=== PATIENT | male | born 1985 | race Two or more races ===

== ENCOUNTER 2018-06-23 13:16 | Inpatient (IN) | payer OTHER ==
[2018-06-23 16:48] VITALS: BMI 25.1
--- NOTE | 2018-06-23 18:31 | HP ---
CIWA Score - CIWA Score Nausea/Vomitin-No Nausea/No Vomiting Muscle Tremors: 1-None Visible, but Nabb Anxiety: 3 Agitation: 2 Paroxysmal Sweats: 1-Minimal Palms Moist Orientation: 0-Oriented Tacttile Disturbances: 0-None Auditory Disturbances: 0-None Visual Disturbances: 0-None Headache: 3-Moderate (6/10 pain) CIWA-Ar Total Score: 10 Admission ROS BHS - HPI Chief Complaint: alcohol withdrawal symptoms Allergies/Adverse Reactions: Allergies Allergy/AdvReac Type Severity Reaction Status Date / Time shellfish derived Allergy Hives Verified 06/23/18 18:29 History of Present Illness: 32 yo male with hx of alcohol dependence is here seeking detox. patient reports he was sent by his patient program [facility] after d/t relapse. Last detox 2002 unable to recall the name of the facility. Denies any medical or psychiatric problems. Denies suicidal / homicidal ideation. Denies hx of seizures or blackouts. Longest period of sobriety two years. Reports currently under parole, release from care home 05/31/18. Exam Limitations: No Limitations - Ebola screening Have you traveled outside of the country in the last 21 days: No Have you had contact with anyone from an Ebola affected area: No Have you been sick,other than usual withdrawal symptoms: No - Review of Systems Constitutional: Chills, Changes in sleep, Other (tire / fatigue) EENT: reports: No Symptoms Reported Respiratory: reports: No Symptoms reported Cardiac: reports: No Symptoms Reported GI: reports: Nausea, Other : reports: No Symptoms Reported Musculoskeletal: reports: No Symptoms Reported Integumentary: reports: No Symptoms Reported Neuro: reports: Headache Endocrine: reports: Increased Thirst Hematology: reports: No Symptoms Reported Psychiatric: reports: Orientated x3, Anxious, Depressed Other Systems: Reviewed and Negative Patient History - Patient Medical History Hx Anemia: No Hx Asthma: No Hx Chronic Obstructive Pulmonary Disease (COPD): No Hx Cancer: No Hx Cardiac Disorders: No Hx Congestive Heart Failure: No Hx Hypertension: No Hx Hypercholesterolemia: No Hx Pacemaker: No HX Cerebrovascular Accident: No Hx Seizures: No Hx Dementia: No Hx Diabetes: No Hx Gastrointestinal Disorders: No Hx Liver Disease: No Hx Genitourinary Disorders: No Hx Sexually Transmitted Disorders: Yes (chamydia ) Hx Renal Disease (ESRD): No Hx Thyroid Disease: No Hx Human Immunodeficiency Virus (HIV): No (Last tested one year ago ) Hx Hepatitis C: No Hx Depression: No Hx Suicide Attempt: No Hx Bipolar Disorder: No (reports dx in the past ) Hx Schizophrenia: No - Patient Surgical History Past Surgical History: No - PPD History Previous Implant?: No Documented Results: Negative w/o proof PPD to be Administered?: Yes - Smoking Cessation Smoking history: Current every day smoker Have you smoked in the past 12 months: Yes Aproximately how many cigarettes per day: 10 Hx Chewing Tobacco Use: No Initiated information on smoking cessation: Yes 'Breaking Loose' booklet given: 06/23/18 - Substance & Tx. History Hx Alcohol Use: Yes Hx Substance Use: Yes Substance Use Type: Alcohol Hx Substance Use Treatment: Yes (Last detox 2002 unable to recall the name of the facility.) - Substances Abused Alcohol Route: Oral Frequency: 1-2 times per week Amount used: 1 pint liquor + 6 shots of liquor Age of first use: 15 Date of Last Use: 06/23/18 Family Disease History - Family Disease History Family Disease History: [place]: Sister (alive ) Admission Physical Exam S - Vital Signs Vital Signs: Vital Signs - 24 hr 06/23/18 16:46 Temperature 98.4 F Pulse Rate 83 Respiratory 20 Rate Blood Pressure 132/77 - Physical General Appearance: Yes: Appropriately Dressed, Sweating, Anxious HEENTM: Yes: EOMI, Hearing grossly Normal, Normal ENT Inspection, Normocephalic , Normal Voice, NIRALI, Pharynx Normal, Tm's normal Respiratory: Yes: Chest Non-Tender, Lungs Clear, Normal Breath Sounds, No Respiratory Distress, No Accessory Muscle Use Neck: Yes: Within Normal Limits Breast: Yes: Breast Exam Deferred Cardiology: Yes: Regular Rhythm, Regular Rate Abdominal: Yes: Normal Bowel Sounds, Non Tender, Flat, Soft Genitourinary: Yes: Within Normal Limits Back: Yes: Normal Inspection Musculoskeletal: Yes: full range of Motion, Gait Steady, Pelvis Stable Extremities: Yes: Normal Capillary Refill, Normal Inspection, Normal Range of Motion, Non-Tender Integumentary: Yes: Normal Color, Warm, Moist Lymphatic: Yes: Within Normal Limits - Diagnostic (1) Nicotine dependence Current Visit: Yes Status: Acute Qualifiers: Nicotine product type: cigarettes (2) Alcohol dependence with withdrawal Current Visit: Yes Status: Acute Qualifiers: Complication of substance-induced condition: uncomplicated Qualified Code(s ): F10.230 - Alcohol dependence with withdrawal, uncomplicated Cleared for Admission [facility] - Detox or Rehab [facility] Level of Care: Medically Supervised Detox Regimen/Protocol: Librium S Breath Alcohol Content Breath Alcohol Content: 0 Urine Drug Screen - Results Drug Screen Negative: Yes
[2018-06-23] MEDS ORDERED: MAGNESIUM HYDROX 2400MG/30ML ORAL SUSPENSION 30 ML CUP PO PRN (18:43)
[2018-06-23] MEDS ORDERED: P-EPHED 60MG/TRIPROLIDI 2.5MG TABLET PO PRN (18:43)
[2018-06-23] MEDS ORDERED: guaiFENesin/D-METHORPHAN HB 10 ML UNIT-DOSE CUPS PO PRN (18:43)
[2018-06-23] MEDS ORDERED: MAG HYDROX/AL HYDROX/SIMETH 30 ML UNIT-DOSE CUP PO PRN (18:43)
[2018-06-23] MEDS ORDERED: MAGNESIUM CITRATE 300 ML BOTTLE PO PRN (18:43)
[2018-06-23] MEDS ORDERED: ACETAMINOPHEN 325 MG TABLET (FP) PO PRN (18:43)
[2018-06-23] MEDS ORDERED: MENTHOL/PHENOL 1 EACH UD MM PRN (18:43)
[2018-06-23] MEDS ORDERED: LOPERAMIDE HCL 2 MG CAPSULE PO PRN (18:43)
[2018-06-23] MEDS ORDERED: NICOTINE POLACRILEX 2 MG GUM BUC PRN (18:43)
[2018-06-23] MEDS ORDERED: chlordiazePOXIDE HCL 25 MG CAPSULE PO PRN (18:43)
[2018-06-23] MEDS ORDERED: IBUPROFEN 400 MG TABLET (FP) PO PRN (18:43)
[2018-06-23] MEDS: chlordiazePOXIDE HCL 25 MG CAPSULE PO SCH (22:00)
[2018-06-23] MEDS: THIAMINE HCL 100 MG TABLET (FP) PO SCH (22:01)
[2018-06-24 01:02] LABS: URINE APPEARANCE CLEAR; URINE BILIRUBIN NEGATIVE (<2.0 mg/dL); URINE COLOR YELLOW; URINE GLUCOSE (UA) NEGATIVE (NEGATIVE); URINE KETONE NEGATIVE (NEGATIVE); URINE LEUK ESTERASE NEGATIVE (NEGATIVE); URINE NITRITE NEGATIVE (NEGATIVE); URINE PROTEIN NEGATIVE (NEGATIVE)
[2018-06-24] MEDS: chlordiazePOXIDE HCL 25 MG CAPSULE PO SCH ×4 (05:30→22:29)
[2018-06-24 09:57] LABS: HEMATOCRIT 41.6 % (35.4-49); HEMOGLOBIN 13.1 GM/dL (11.7-16.9); MCH 26.2 pg (25.7-33.7); MCHC 31.5 g/dl (32.0-35.9); MEAN CELL VOLUME 83.3 fl (80-96); MEAN PLT VOLUME 9.9 fl (7.5-11.1); PLATELET COUNT 189 K/MM3 (134-434); RDW 14.3 % (11.9-15.9); WHITE BLOOD COUNT 5.8 K/mm3 (4.0-10.0)
--- NOTE | 2018-06-24 10:14 | EKG ---
Test Reason : Blood Pressure : / mmHG Vent. Rate : 056 BPM Atrial Rate : 056 BPM P-R Int : 176 ms QRS Dur : 104 ms QT Int : 392 ms P-R-T Axes : 064 083 062 degrees QTc Int : 378 ms POOR DATA QUALITY, INTERPRETATION MAY BE ADVERSELY AFFECTED SINUS BRADYCARDIA NO PREVIOUS ECGS AVAILABLE Confirmed by ANTHONY BLANC MD ([id number]) on 06/24/2018 10:14:05 AM Referred By: Confirmed By:ANTHONY BLANC MD
[2018-06-24 10:26] LABS: ALBUMIN 3.5 g/dl (3.4-5.0); ALK PHOS 58 U/L (45-117); ANION GAP 7 MMOL/L (8-16); BILIRUBIN,TOTAL 0.6 mg/dL (0.2-1); BLOOD UREA NITROGEN 20 mg/dL (7-18); CALCIUM 9.3 mg/dL (8.5-10.1); CHLORIDE 107 mmol/L (98-107); CO2 28 mmol/L (21-32); CREATININE 0.9 mg/dL (0.55-1.3); GLUCOSE,RANDOM 78 mg/dL (74-106); POTASSIUM 4.9 mmol/L (3.5-5.1); SGOT/AST 15 U/L (15-37); SGPT/ALT 23 U/L (13-61); SODIUM 143 mmol/L (136-145); TOT PROT 6.7 g/dl (6.4-8.2)
[2018-06-24] MEDS: NICOTINE 14 MG/24 HOURS TOPICAL PATCH TD SCH (10:45)
[2018-06-24] MEDS: PRENATAL VITAMINS W/ FOLIC ACID TABLET (FP) PO SCH (10:49)
--- NOTE | 2018-06-24 13:35 | CONSULT ---
[facility] Psychiatric Consult - Data Date of interview: 06/24/18 Admission source: [facility] Identifying data: First admission to [facility] for this 32 y/o male seeking detoxification treatment on for alcohol dependence.Patient is ,a father of one,undomiciled,unemployed and supported on Public Assistance. Substance Abuse History: Discussed in this session.Patient confirms a long standing history of alcohol dependenceSmoking history: Current every day smoker. Have you smoked in the past 12 months: Yes. Aproximately how many cigarettes per day: 10. Hx Chewing Tobacco Use: No. Initiated information on smoking cessation: Yes. 'Breaking Loose' booklet given: 06/23/18. - Substance & Tx. History. Hx Alcohol Use: Yes. Hx Substance Use: Yes. Substance Use Type : Alcohol. Hx Substance Use Treatment: Yes (Last detox 2002 unable to recall the name of the facility.). - Substances Abused. Alcohol. Route: Oral. Frequency: 1-2 times per week. Amount used: 1 pint liquor + 6 shots of liquor. Age of first use: 15. Date of Last Use: 06/23/18 Medical History: Patient endorses good general health.Noted past history of treatment for chlamydia. Psychiatric History: Patient reports a history of psychiatric hospitalizaions at [facility] + [facility].Diagnosed with Bipolar Disorder. Mr Bryce declares that he stopped taking depakote,lithium and fluoxetine in 2014. Used to get psychiatric OPD care at the [facility]. Lost to follow-up for about three years. Patient denies history of suicide attempts. Physical/Sexual Abuse/Trauma History: Patient denies. Additional Comment: Drug Screen is negative. Noted. Mental Status Exam - Mental Status Exam Alert and Oriented to: Time, Place, Person Cognitive Function: Good Patient Appearance: Well Groomed Mood: Hopeful, Euthymic Affect: Normal Range Patient Behavior: Fatigued, Cooperative Speech Pattern: Clear, Appropriate Voice Loudness: Normal Thought Process: Goal Oriented Thought Disorder: Not Present Hallucinations: Denies Suicidal Ideation: Denies Homicidal Ideation: Denies Insight/Judgement: Fair, Poor Sleep: Well Appetite: Good Muscle strength/Tone: Normal Gait/Station: Normal Psychiatric Findings - Problem List ([place] 1, 2,3) (1) Alcohol dependence with withdrawal Current Visit: Yes Status: Acute Qualifiers: Complication of substance-induced condition: uncomplicated Qualified Code(s ): F10.230 - Alcohol dependence with withdrawal, uncomplicated (2) Nicotine dependence Current Visit: Yes Status: Acute Qualifiers: Nicotine product type: cigarettes - Initial Treatment Plan Initial Treatment Plan: Psychoeducation.Sleep hygiene.Detoxification.Observation.
--- NOTE | 2018-06-24 17:04 | PN ---
S CIWA - CIWA Score Nausea/Vomitin Muscle Tremors: 4-Moderate,w/Arms Extend Anxiety: 4-Mod. Anxious/Guarded Agitation: 4-Moderately Restless Paroxysmal Sweats: 3 Orientation: 0-Oriented Tacttile Disturbances: 0-None Auditory Disturbances: 0-None Visual Disturbances: 0-None Headache: 1-Very Mild CIWA-Ar Total Score: 18 BHS Progress Note (SOAP) Subjective: Sweating, interrupted sleep Objective: 06/24/18 17:03 Last Vital Signs Temp Pulse Resp BP Pulse Ox 97.1 F L 66 18 130/67 06/24/18 14:41 06/24/18 14:41 06/24/18 14:41 06/24/18 14:41 Laboratory Tests 06/24/18 06/24/18 06/24/18 00:30 07:00 07:00 WBC 5.8 RBC 5.00 Hgb 13.1 Hct 41.6 MCV 83.3 MCH 26.2 MCHC 31.5 L RDW 14.3 Plt Count 189 MPV 9.9 Sodium 143 Potassium 4.9 Chloride 107 Carbon Dioxide 28 Anion Gap 7 L BUN 20 H Creatinine 0.9 Creat Clearance w eGFR > 60 Random Glucose 78 Calcium 9.3 Total Bilirubin 0.6 AST 15 ALT 23 Alkaline Phosphatase 58 Total Protein 6.7 Albumin 3.5 Urine Color Yellow Urine Appearance Clear Urine pH 7.0 Ur Specific [place] 1.025 Urine Protein Negative Urine Glucose (UA) Negative Urine Ketones Negative Urine Blood Negative Urine Nitrite Negative Urine Bilirubin Negative Urine Urobilinogen 2.0 Ur Leukocyte Esterase Negative RPR Titer HIV 1&2 Antibody Screen HIV P24 Antigen 06/24/18 06/24/18 07:00 07:00 WBC RBC Hgb Hct MCV MCH MCHC RDW Plt Count MPV Sodium Potassium Chloride Carbon Dioxide Anion Gap BUN Creatinine Creat Clearance w eGFR Random Glucose Calcium Total Bilirubin AST ALT Alkaline Phosphatase Total Protein Albumin Urine Color Urine Appearance Urine pH Ur Specific [place] Urine Protein Urine Glucose (UA) Urine Ketones Urine Blood Urine Nitrite Urine Bilirubin Urine Urobilinogen Ur Leukocyte Esterase RPR Titer Nonreactive HIV 1&2 Antibody Screen Negative HIV P24 Antigen Negative Labs reviewed: bun 20 Assessment: 06/24/18 17:03 Withdrawal sxs Noted with azotemia Plan: Continue detox Azotemia: encouraged PO water intake
[2018-06-24] MEDS: THIAMINE HCL 100 MG TABLET (FP) PO SCH (22:29)
[2018-06-25] MEDS: chlordiazePOXIDE HCL 25 MG CAPSULE PO SCH ×3 (05:52→17:57)
[2018-06-25] MEDS: PRENATAL VITAMINS W/ FOLIC ACID TABLET (FP) PO SCH (10:50)
[2018-06-25] MEDS: NICOTINE 14 MG/24 HOURS TOPICAL PATCH TD SCH (10:52)
--- NOTE | 2018-06-25 16:49 | PN ---
S CIWA - CIWA Score Nausea/Vomitin Muscle Tremors: 2 Anxiety: 2 Agitation: 2 Paroxysmal Sweats: 1-Minimal Palms Moist Orientation: 0-Oriented Tacttile Disturbances: 1-Very Mild Itch/Numbness Auditory Disturbances: 1-Very Mild Visual Disturbances: 1-Very Mild Sensitivity Headache: 2-Mild CIWA-Ar Total Score: 14 S Progress Note (SOAP) Subjective: alert,irritable,anxious,interrupted sleep, Objective: 06/25/18 16:48 Vital Signs Temperature 98.6 F 06/25/18 15:33 Pulse Rate 69 06/25/18 15:33 Respiratory Rate 18 06/25/18 15:33 Blood Pressure 115/78 06/25/18 15:33 O2 Sat by Pulse Oximetry (%) 06/25/18 16:48 Laboratory Last Values WBC 5.8 K/mm3 (4.0-10.0) 06/24/18 07:00 RBC 5.00 M/mm3 (4.00-5.60) 06/24/18 07:00 Hgb 13.1 GM/dL (11.7-16.9) 06/24/18 07:00 Hct 41.6 % (35.4-49) 06/24/18 07:00 MCV 83.3 fl (80-96) 06/24/18 07:00 MCH 26.2 pg (25.7-33.7) 06/24/18 07:00 MCHC 31.5 g/dl (32.0-35.9) L 06/24/18 07:00 RDW 14.3 % (11.9-15.9) 06/24/18 07:00 Plt Count 189 K/MM3 (134-434) 06/24/18 07:00 MPV 9.9 fl (7.5-11.1) 06/24/18 07:00 Sodium 143 mmol/L (136-145) 06/24/18 07:00 Potassium 4.9 mmol/L (3.5-5.1) 06/24/18 07:00 Chloride 107 mmol/L (98-107) 06/24/18 07:00 Carbon Dioxide 28 mmol/L (21-32) 06/24/18 07:00 Anion Gap 7 MMOL/L (8-16) L 06/24/18 07:00 BUN 20 mg/dL (7-18) H 06/24/18 07:00 Creatinine 0.9 mg/dL (0.55-1.3) 06/24/18 07:00 Creat Clearance w eGFR > 60 (>60) 06/24/18 07:00 Random Glucose 78 mg/dL (74-106) 06/24/18 07:00 Calcium 9.3 mg/dL (8.5-10.1) 06/24/18 07:00 Total Bilirubin 0.6 mg/dL (0.2-1) 06/24/18 07:00 AST 15 U/L (15-37) 06/24/18 07:00 ALT 23 U/L (13-61) 06/24/18 07:00 Alkaline Phosphatase 58 U/L (45-117) 06/24/18 07:00 Total Protein 6.7 g/dl (6.4-8.2) 06/24/18 07:00 Albumin 3.5 g/dl (3.4-5.0) 06/24/18 07:00 Urine Color Yellow 06/24/18 00:30 Urine Appearance Clear 06/24/18 00:30 Urine pH 7.0 (5.0-8.0) 06/24/18 00:30 Ur Specific [place] 1.025 (1.010-1.035) 06/24/18 00:30 Urine Protein Negative (NEGATIVE) 06/24/18 00:30 Urine Glucose (UA) Negative (NEGATIVE) 06/24/18 00:30 Urine Ketones Negative (NEGATIVE) 06/24/18 00:30 Urine Blood Negative (NEGATIVE) 06/24/18 00:30 Urine Nitrite Negative (NEGATIVE) 06/24/18 00:30 Urine Bilirubin Negative (<2.0 mg/dL) 06/24/18 00:30 Urine Urobilinogen 2.0 mg/dL (0.2-1.0) 06/24/18 00:30 Ur Leukocyte Esterase Negative (NEGATIVE) 06/24/18 00:30 RPR Titer Nonreactive (NONREACTIVE) 06/24/18 07:00 HIV 1&2 Antibody Screen Negative 06/24/18 07:00 HIV P24 Antigen Negative 06/24/18 07:00 Assessment: 06/25/18 16:48 withdrawal symptom Plan: continue detox,encourage oral fluid
[2018-06-25] MEDS: THIAMINE HCL 100 MG TABLET (FP) PO SCH (22:43)
[2018-06-25] MEDS: chlordiazePOXIDE 5 MG CAPSULE PO SCH (22:44)
[2018-06-25] MEDS: MELATONIN 5 MG TABLETS PO PRN (22:44)
[2018-06-26] MEDS: chlordiazePOXIDE 5 MG CAPSULE PO SCH ×3 (06:04→17:31)
[2018-06-26] MEDS: PRENATAL VITAMINS W/ FOLIC ACID TABLET (FP) PO SCH (10:18)
[2018-06-26] MEDS: NICOTINE 14 MG/24 HOURS TOPICAL PATCH TD SCH (10:19)
[2018-06-26 11:50] LABS: ANION GAP 18 MMOL/L (8-16); BLOOD UREA NITROGEN 14 mg/dL (7-18); CALCIUM 9.4 mg/dL (8.5-10.1); CHLORIDE 100 mmol/L (98-107); CO2 20 mmol/L (21-32); GLUCOSE,RANDOM 83 mg/dL (74-106); POTASSIUM 3.8 mmol/L (3.5-5.1); SODIUM 137 mmol/L (136-145)
--- NOTE | 2018-06-26 17:25 | PN ---
BHS Progress Note (SOAP) Subjective: Denies any complaints Objective: 06/26/18 17:24 Last Vital Signs Temp Pulse Resp BP Pulse Ox 97.6 F 66 18 131/52 L 06/26/18 13:58 06/26/18 13:58 06/26/18 13:58 06/26/18 13:58 Laboratory Tests 06/24/18 06/24/18 06/24/18 00:30 07:00 07:00 WBC 5.8 RBC 5.00 Hgb 13.1 Hct 41.6 MCV 83.3 MCH 26.2 MCHC 31.5 L RDW 14.3 Plt Count 189 MPV 9.9 Sodium 143 Potassium 4.9 Chloride 107 Carbon Dioxide 28 Anion Gap 7 L BUN 20 H Creatinine 0.9 Creat Clearance w eGFR > 60 Random Glucose 78 Calcium 9.3 Total Bilirubin 0.6 AST 15 ALT 23 Alkaline Phosphatase 58 Total Protein 6.7 Albumin 3.5 Urine Color Yellow Urine Appearance Clear Urine pH 7.0 Ur Specific [place] 1.025 Urine Protein Negative Urine Glucose (UA) Negative Urine Ketones Negative Urine Blood Negative Urine Nitrite Negative Urine Bilirubin Negative Urine Urobilinogen 2.0 Ur Leukocyte Esterase Negative RPR Titer HIV 1&2 Antibody Screen HIV P24 Antigen 06/24/18 06/24/18 06/26/18 07:00 07:00 07:30 WBC RBC Hgb Hct MCV MCH MCHC RDW Plt Count MPV Sodium 137 Potassium 3.8 Chloride 100 Carbon Dioxide 20 L Anion Gap 18 H BUN 14 Creatinine 1.0 Creat Clearance w eGFR > 60 Random Glucose 83 Calcium 9.4 Total Bilirubin AST ALT Alkaline Phosphatase Total Protein Albumin Urine Color Urine Appearance Urine pH Ur Specific [place] Urine Protein Urine Glucose (UA) Urine Ketones Urine Blood Urine Nitrite Urine Bilirubin Urine Urobilinogen Ur Leukocyte Esterase RPR Titer Nonreactive HIV 1&2 Antibody Screen Negative HIV P24 Antigen Negative Labs reviewed Assessment: 06/26/18 17:25 Withdrawal sxs Plan: Continue detox Encouraged PO water intake
[2018-06-26] MEDS: chlordiazePOXIDE HCL 10 MG CAPSULE PO SCH (22:38)
[2018-06-26] MEDS: THIAMINE HCL 100 MG TABLET (FP) PO SCH (22:38)
[2018-06-26] MEDS: MELATONIN 5 MG TABLETS PO PRN (22:38)
[2018-06-27] MEDS: chlordiazePOXIDE HCL 10 MG CAPSULE PO SCH (05:56)
[2018-06-27 09:36] VITALS: BP 123/69; PULSE 79; TEMP 97.4
--- NOTE | 2018-06-27 10:56 | DS ---
[facility] Detox Discharge Summary Admission Date: 06/23/18 Discharge Date: 06/27/18 - History Present History: Alcohol Dependence Pertinent Past History: Denies - Physical Exam Results Vital Signs: Vital Signs Temperature 97.4 F L 06/27/18 09:35 Pulse Rate 79 06/27/18 09:35 Respiratory Rate 18 06/27/18 09:35 Blood Pressure 123/69 06/27/18 09:35 O2 Sat by Pulse Oximetry (%) Pertinent Admission Physical Exam Findings: Withdrawal symptoms Laboratory Tests 06/24/18 06/24/18 06/24/18 00:30 07:00 07:00 WBC 5.8 RBC 5.00 Hgb 13.1 Hct 41.6 MCV 83.3 MCH 26.2 MCHC 31.5 L RDW 14.3 Plt Count 189 MPV 9.9 Sodium 143 Potassium 4.9 Chloride 107 Carbon Dioxide 28 Anion Gap 7 L BUN 20 H Creatinine 0.9 Creat Clearance w eGFR > 60 Random Glucose 78 Calcium 9.3 Total Bilirubin 0.6 AST 15 ALT 23 Alkaline Phosphatase 58 Total Protein 6.7 Albumin 3.5 Urine Color Yellow Urine Appearance Clear Urine pH 7.0 Ur Specific [place] 1.025 Urine Protein Negative Urine Glucose (UA) Negative Urine Ketones Negative Urine Blood Negative Urine Nitrite Negative Urine Bilirubin Negative Urine Urobilinogen 2.0 Ur Leukocyte Esterase Negative RPR Titer HIV 1&2 Antibody Screen HIV P24 Antigen 06/24/18 06/24/18 06/26/18 07:00 07:00 07:30 WBC RBC Hgb Hct MCV MCH MCHC RDW Plt Count MPV Sodium 137 Potassium 3.8 Chloride 100 Carbon Dioxide 20 L Anion Gap 18 H BUN 14 Creatinine 1.0 Creat Clearance w eGFR > 60 Random Glucose 83 Calcium 9.4 Total Bilirubin AST ALT Alkaline Phosphatase Total Protein Albumin Urine Color Urine Appearance Urine pH Ur Specific [place] Urine Protein Urine Glucose (UA) Urine Ketones Urine Blood Urine Nitrite Urine Bilirubin Urine Urobilinogen Ur Leukocyte Esterase RPR Titer Nonreactive HIV 1&2 Antibody Screen Negative HIV P24 Antigen Negative Labs reviewed - Treatment Hospital Course: Detox Protocol Followed, Detoxed Safely, Responded well, Discharged Condition Good - Medication Discharge Medications: Ambulatory Orders NK [No Known Home Medication] 06/23/18 - Diagnosis (1) Azotemia Status: Acute (2) Alcohol dependence with withdrawal Status: Acute Qualifiers: Complication of substance-induced condition: uncomplicated Qualified Code(s ): F10.230 - Alcohol dependence with withdrawal, uncomplicated (3) Nicotine dependence Status: Chronic Qualifiers: Nicotine product type: cigarettes - AMA Did Patient Leave Against Medical Advice: No (F/U with your PCP within 1-2 weeks )
== END 2018-06-27 09:05 | disposition home or self-care (01) | DRG 775 ==
LOC: YASAS 13:16 → Y3N 18:36
PROC: HZ2ZZZZ Detoxification Services for Substance Abuse Treatment (ICD-10-PCS; principal; 2018-06-23)
DX: F10.230 Alcohol dependence with withdrawal, uncomplicated (principal); F17.210 Nicotine dependence, cigarettes, uncomplicated; R79.89 Other specified abnormal findings of blood chemistry; Z87.438 Personal history of other diseases of male genital organs; Z91.013 Allergy to seafood
CPT/HCPCS: 36415; 80048; 80053; 81003; 85027; 86593; 87389; 93005; 93010

== ENCOUNTER 2020-04-24 08:26 | Inpatient (IN) | payer OTHER ==
--- NOTE | 2020-04-24 08:57 | BHS.RME ---
Substance Use & Tx History - Substance Use History Alcohol Substance amount: 2 pints Vodka Frequency of use: Daily Substance route: Oral Date of Last Use: 04/23/20 (First drink age 14 y. No seizure. blackout in 2006. 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) Marijuana/Hashish Substance amount: one joint Frequency of use: Once a month Substance route: Smoking Date of Last Use: 04/03/20 (First use age 14 y) Nicotine Substance amount: 1/2 pack Frequency of use: Daily Substance route: Smoking Date of Last Use: 04/24/20 (began age 14 y) Ecstasy Substance amount: one or two tabs Frequency of use: Less than 5 times a year Substance route: Oral Date of Last Use: 04/23/20 (First use age 24 y) Physical/Psych/Mental Status - Behavior General Behavior: Increased activity (restlessness, agitation) Eye Contact: Normal - Cooperativeness Cooperativeness: Cooperative - Thinking Thought Processes: Tight Thought content: Future oriented - Physical Health Problems Is patient presently having any pain?: No Does patient presently have any injuries (include location): No Does patient currently have a fever: No CIWA Nausea/Vomitin Muscle Tremors: 4-Moderate,w/Arms Extend Anxiety: 4-Mod. Anxious/Guarded Agitation: 1-Slight > Activity Paroxysmal Sweats: 1-Minimal Palms Moist Orientation: 0-Oriented Tacttile Disturbances: 0-None Auditory Disturbances: 0-None Visual Disturbances: 0-None Headache: 0-None Present CIWA-Ar Total Score: 12
[2020-04-24 09:20] VITALS: BMI 28.0
--- NOTE | 2020-04-24 09:54 | HP ---
CIWA Score Nausea/Vomitin Muscle Tremors: 4-Moderate,w/Arms Extend Anxiety: 4-Mod. Anxious/Guarded Agitation: 1-Slight > Activity Paroxysmal Sweats: 1-Minimal Palms Moist Orientation: 0-Oriented Tacttile Disturbances: 0-None Auditory Disturbances: 0-None Visual Disturbances: 0-None Headache: 0-None Present CIWA-Ar Total Score: 12 - Admission Criteria OASAS Guidelines: Admission for Medically Managed Detox: Requires at least one of the followin. CIWA greater than 12 2. Seizures within the past 24 hours 3. Delirium tremens within the past 24 hours 4. Hallucinations within the past 24 hours 5. Acute intervention needed for co occurring medical disorder 6. Acute intervention needed for co occurring psychiatric disorder 7. Severe withdrawal that cannot be handled at a lower level of care (continued vomiting, continued diarrhea, abnormal vital signs) requiring intravenous medication and/or fluids 8. Admitting History and Physical - Admission Chief Complaint: Mr. Wu is a 34 yo man who presents to [facility] stating he is here for "an alcohol problem". He requests admission to detox. History of Present Illness: Mr. Wu is a 34 yo man who presents to [facility] stating he is here for "an alcohol problem". He requests admission to detox. He was last here in June 2018 for alcohol detox. PMH: none PSH; none PSYCH; remote hx of bipolar, on no meds currently SOC: homeless Legal: on [place], [address] date in May Substance Use History Alcohol Substance amount: 2 pints Vodka Frequency of use: Daily Substance route: Oral Date of Last Use: 04/23/20 (First drink age 14 y. No seizure. blackout in 2006. 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) Marijuana/Hashish Substance amount: one joint Frequency of use: Once a month Substance route: Smoking Date of Last Use: 04/03/20 (First use age 14 y) Nicotine Substance amount: 1/2 pack Frequency of use: Daily Substance route: Smoking Date of Last Use: 04/24/20 (began age 14 y) Ecstasy Substance amount: one or two tabs Frequency of use: Less than 5 times a year Substance route: Oral Date of Last Use: 04/23/20 (First use age 24 y) - Smoking History Smoking history: Current every day smoker Have you smoked in the past 12 months: Yes Aproximately how many cigarettes per day: 10 - Alcohol/Substance Use Hx Alcohol Use: Yes Admission ROS BHS - HPI Allergies/Adverse Reactions: Allergies Allergy/AdvReac Type Severity Reaction Status Date / Time shellfish derived Allergy Hives Verified 04/24/20 09:17 Exam Limitations: No Limitations - Ebola screening Have you traveled outside of the country in the last 21 days: No Have you been sick,other than usual withdrawal symptoms: No Do you have a fever: No - Review of Systems Constitutional: Changes in sleep (trouble falling asleep) EENT: reports: No Symptoms Reported Respiratory: reports: No Symptoms reported Cardiac: reports: No Symptoms Reported GI: reports: No Symptoms Reported : reports: No Symptoms Reported Musculoskeletal: reports: No Symptoms Reported Integumentary: reports: No Symptoms Reported Neuro: reports: No Symptoms reported Hematology: reports: No Symptoms Reported Psychiatric: reports: Anxious Patient History - Patient Medical History Hx Anemia: No Hx Asthma: No Hx Chronic Obstructive Pulmonary Disease (COPD): No Hx Cancer: No Hx Cardiac Disorders: No Hx Congestive Heart Failure: No Hx Hypertension: No Hx Hypercholesterolemia: No Hx Pacemaker: No HX Cerebrovascular Accident: No Hx Seizures: No Hx Dementia: No Hx Diabetes: No Hx Gastrointestinal Disorders: No Hx Liver Disease: No Hx Genitourinary Disorders: No Hx Sexually Transmitted Disorders: No Hx Renal Disease (ESRD): No Hx Thyroid Disease: No Hx Human Immunodeficiency Virus (HIV): No (Last tested one year ago ) Hx Hepatitis C: No Hx Depression: No Hx Suicide Attempt: No Hx Bipolar Disorder: No (reports dx in the past ) Hx Schizophrenia: No - Patient Surgical History Past Surgical History: No Hx Neurologic Surgery: No Hx Cataract Extraction: No Hx Cardiac Surgery: No Hx Lung Surgery: No Hx Breast Surgery: No Hx Breast Biopsy: No Hx Abdominal Surgery: No Hx Appendectomy: No Hx Cholecystectomy: No Hx Genitourinary Surgery: No Hx Section: No Hx Orthopedic Surgery: No Anesthesia Reaction: Yes - PPD History Previous Implant?: Yes Documented Results: Negative w/proof Implanted On Prior [facility] Admission?: Yes Date: 06/25/18 - Reproductive History Patient : (n/a) - Smoking Cessation Smoking history: Current every day smoker Have you smoked in the past 12 months: Yes Aproximately how many cigarettes per day: 10 Cigars Per Day: 0 Hx Chewing Tobacco Use: No Initiated information on smoking cessation: Yes 'Breaking Loose' booklet given: 04/24/20 - Substances abused Alcohol Substance route: Oral Frequency: Daily Amount used: 2 pints of EJ isis/valerie Age of first use: 14 Date of last use: 04/23/20 Admission Physical Exam [facility] - Vital Signs Vital Signs: Vital Signs - 24 hr 04/24/20 09:18 Temperature 98.3 F Pulse Rate 82 Respiratory 20 Rate Blood Pressure 112/71 - Physical General Appearance: Yes: No Apparent Distress, Nourished, Appropriately Dressed HEENTM: Yes: EOMI, Hearing grossly Normal, Normocephalic, Normal Voice Respiratory: Yes: Lungs Clear, Normal Breath Sounds, No Respiratory Distress, No Accessory Muscle Use Breast: Yes: Breast Exam Deferred Cardiology: Yes: Regular Rhythm, Regular Rate, S1, S2 Abdominal: Yes: Non Tender, Flat, Soft, Increased Bowel Sounds Genitourinary: Yes: Other (deferred) Musculoskeletal: Yes: Gait Steady Extremities: Yes: Normal Inspection, Non-Tender Neurological: Yes: Alert, Normal Response Integumentary: Yes: Normal Color, Dry, Warm - Diagnostic (1) Cannabis use disorder, mild, abuse Current Visit: Yes Status: Chronic (2) Alcohol dependence with withdrawal Current Visit: Yes Status: Acute Qualifiers: Complication of substance-induced condition: uncomplicated Qualified Code(s): F10.230 - Alcohol dependence with withdrawal, uncomplicated (3) Insomnia Current Visit: Yes Status: Chronic Qualifiers: Insomnia type: alcohol-induced Qualified Code(s): F10.982 - Alcohol use, unspecified with alcohol-induced sleep disorder Comment: SLEEP HYGIENE MELATONIN 10MG PSYCH CONSULT (4) Nicotine dependence Current Visit: Yes Status: Chronic Qualifiers: Nicotine product type: cigarettes Cleared for Admission [facility] - Detox or Rehab [facility] Level of Care: Medically Managed Detox Regimen/Protocol: Librium Breathalyzer - Breathalyzer Breathalyzer: 0 Urine Drug Screen - Test Device Lot number: [id number] Expiration date: 04/16/22 - Control Is test valid?: Yes - Results Drug screen NEGATIVE: Yes Inpatient Rehab Admission - Rehab Decision to Admit Inpatient rehab admission?: No
[2020-04-24] MEDS ORDERED: chlordiazePOXIDE HCL 25 MG CAPSULE PO PRN (09:56)
[2020-04-24] MEDS ORDERED: MAGNESIUM HYDROX 2400MG/30ML ORAL SUSPENSION 30 ML CUP PO PRN (09:56)
[2020-04-24] MEDS ORDERED: METHOCARBAMOL 500 MG TABLET PO PRN (09:56)
[2020-04-24] MEDS ORDERED: ONDANSETRON *ODT* 4 MG TABLET SL PRN (09:56)
[2020-04-24] MEDS ORDERED: MENTHOL/PHENOL 1 EACH UD MM PRN (09:56)
[2020-04-24] MEDS ORDERED: MAG HYDROX/AL HYDROX/SIMETH 30 ML UNIT-DOSE CUP PO PRN (09:56)
[2020-04-24] MEDS ORDERED: ACETAMINOPHEN 325 MG TABLET (FP) PO PRN ×2 (09:56)
[2020-04-24] MEDS ORDERED: IBUPROFEN 400 MG TABLET (FP) PO PRN (09:56)
[2020-04-24] MEDS ORDERED: MAGNESIUM CITRATE 300 ML BOTTLE PO PRN (09:56)
[2020-04-24] MEDS ORDERED: BISMUTH SUBSALICYLATE 262 MG/15 ML BTL PO PRN (09:56)
[2020-04-24] MEDS ORDERED: NICOTINE POLACRILEX 2 MG GUM BUC PRN (09:56)
[2020-04-24] MEDS: chlordiazePOXIDE HCL 25 MG CAPSULE PO SCH ×3 (11:17→22:14)
[2020-04-24] MEDS: hydrOXYzine PAMOATE 25 MG CAPSULE (FP) PO SCH ×4 (11:17→22:14)
[2020-04-24] MEDS: PRENATAL VITAMINS W/ FOLIC ACID TABLET (FP) PO SCH (11:17)
[2020-04-24] MEDS: NICOTINE 14 MG/24 HOURS TOPICAL PATCH TD SCH (11:18)
--- NOTE | 2020-04-24 14:06 | PN ---
S Progress Note Note: Patient was approached at bedside. He is very sleepy, sedated at this time, showing no response to loud verbal stimuli
[2020-04-24 17:11] LABS: HEMATOCRIT 41.8 % (35.4-49); HEMOGLOBIN 13.4 GM/dL (11.7-16.9); MCH 27.3 pg (25.7-33.7); MCHC 32.1 g/dl (32.0-35.9); MEAN CELL VOLUME 85.2 fl (80-96); MEAN PLT VOLUME 9.7 fl (7.5-11.1); PLATELET COUNT 218 K/MM3 (134-434); RBC 4.91 M/mm3 (4.00-5.60); RDW 14.9 % (11.9-15.9); WHITE BLOOD COUNT 7.1 K/mm3 (4.0-10.0)
[2020-04-24 17:15] LABS: ALBUMIN 4.2 g/dl (3.4-5.0); BLOOD UREA NITROGEN 15.7 mg/dL (7-18); CALCIUM 9.1 mg/dL (8.5-10.1); CREATININE 1.1 mg/dL (0.55-1.3); POTASSIUM 3.9 mmol/L (3.5-5.1); TOT PROT 7.9 g/dl (6.4-8.2)
[2020-04-24] MEDS: THIAMINE HCL 100 MG TABLET (FP) PO SCH (22:14)
[2020-04-24] MEDS: MELATONIN 5 MG TABLETS PO SCH (22:14)
[2020-04-25] MEDS: chlordiazePOXIDE HCL 25 MG CAPSULE PO SCH ×4 (05:34→22:21)
[2020-04-25] MEDS: hydrOXYzine PAMOATE 25 MG CAPSULE (FP) PO SCH ×2 (05:34→10:29)
[2020-04-25] MEDS: PRENATAL VITAMINS W/ FOLIC ACID TABLET (FP) PO SCH (10:30)
[2020-04-25] MEDS: NICOTINE 14 MG/24 HOURS TOPICAL PATCH TD SCH (10:30)
[2020-04-25] MEDS ORDERED: hydrOXYzine PAMOATE 25 MG CAPSULE (FP) PO PRN (10:34)
--- NOTE | 2020-04-25 11:23 | PN ---
[facility] CIWA - CIWA Score Nausea/Vomitin-Mild Nausea/No Vomiting Muscle Tremors: 2 Anxiety: 2 Agitation: 3 Paroxysmal Sweats: No Perspiration Orientation: 0-Oriented Tacttile Disturbances: 1-Very Mild Itch/Numbness Auditory Disturbances: 0-None Visual Disturbances: 0-None Headache: 2-Mild CIWA-Ar Total Score: 11 S Progress Note (SOAP) Subjective: alert,irritable,anxious,interrupted sleep,tremor,aching pain in body and back Objective: 04/25/20 11:22 Vital Signs Temperature 97.5 F L 04/25/20 09:26 Pulse Rate 63 04/25/20 09:26 Respiratory Rate 18 04/25/20 09:26 Blood Pressure 116/65 04/25/20 09:26 O2 Sat by Pulse Oximetry (%) 99 04/25/20 05:27 Laboratory Last Values WBC 7.1 K/mm3 (4.0-10.0) 04/24/20 09:55 RBC 4.91 M/mm3 (4.00-5.60) 04/24/20 09:55 Hgb 13.4 GM/dL (11.7-16.9) 04/24/20 09:55 Hct 41.8 % (35.4-49) 04/24/20 09:55 MCV 85.2 fl (80-96) 04/24/20 09:55 MCH 27.3 pg (25.7-33.7) 04/24/20 09:55 MCHC 32.1 g/dl (32.0-35.9) 04/24/20 09:55 RDW 14.9 % (11.9-15.9) 04/24/20 09:55 Plt Count 218 K/MM3 (134-434) 04/24/20 09:55 MPV 9.7 fl (7.5-11.1) 04/24/20 09:55 Sodium 140 mmol/L (136-145) 04/24/20 09:55 Potassium 3.9 mmol/L (3.5-5.1) 04/24/20 09:55 Chloride 105 mmol/L (98-107) 04/24/20 09:55 Carbon Dioxide 30 mmol/L (21-32) 04/24/20 09:55 Anion Gap 6 MMOL/L (8-16) L 04/24/20 09:55 BUN 15.7 mg/dL (7-18) 04/24/20 09:55 Creatinine 1.1 mg/dL (0.55-1.3) 04/24/20 09:55 Est GFR (CKD-EPI)AfAm 100.97 08 09:55 Est GFR (CKD-EPI)NonAf 87.12 04/24/20 09:55 Random Glucose 89 mg/dL (74-106) 04/24/20 09:55 Calcium 9.1 mg/dL (8.5-10.1) 04/24/20 09:55 Total Bilirubin 1.0 mg/dL (0.2-1) 04/24/20 09:55 AST 36 U/L (15-37) 04/24/20 09:55 ALT 30 U/L (13-61) 04/24/20 09:55 Alkaline Phosphatase 76 U/L (45-117) 04/24/20 09:55 Total Protein 7.9 g/dl (6.4-8.2) 04/24/20 09:55 Albumin 4.2 g/dl (3.4-5.0) 04/24/20 09:55 Syphilis Serology Non-reactive (NONREACTIVE) 04/24/20 09:55 COVID-19 (EMILY) Not detected (Not Detected) 04/24/20 10:50 Assessment: 04/25/20 11:22 withdrawal symptom Plan: continue detox librium regimen
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
[2020-04-25] MEDS: THIAMINE HCL 100 MG TABLET (FP) PO SCH (22:21)
[2020-04-25] MEDS: QUEtiapine FUMARATE 100 MG TABLET (FP) PO SCH (22:22)
[2020-04-25] MEDS: MELATONIN 5 MG TABLETS PO SCH (22:24)
[2020-04-26] MEDS: chlordiazePOXIDE HCL 25 MG CAPSULE PO SCH ×4 (06:01→22:02)
[2020-04-26] MEDS: PRENATAL VITAMINS W/ FOLIC ACID TABLET (FP) PO SCH (10:50)
[2020-04-26] MEDS: NICOTINE 14 MG/24 HOURS TOPICAL PATCH TD SCH (10:50)
--- NOTE | 2020-04-26 13:09 | PN ---
S CIWA - CIWA Score Nausea/Vomitin-No Nausea/No Vomiting Muscle Tremors: 3 Anxiety: 2 Agitation: 2 Paroxysmal Sweats: 2 Orientation: 0-Oriented Tacttile Disturbances: 0-None Auditory Disturbances: 0-None Visual Disturbances: 0-None Headache: 0-None Present CIWA-Ar Total Score: 9 BHS Progress Note (SOAP) Subjective: sweats shakes interrupted sleep headache Objective: 04/26/20 13:08 Vital Signs Temperature 99.3 F 04/26/20 09:21 Pulse Rate 68 04/26/20 09:21 Respiratory Rate 18 04/26/20 09:21 Blood Pressure 121/75 04/26/20 09:21 O2 Sat by Pulse Oximetry (%) 99 04/26/20 09:21 Laboratory Tests 04/24/20 04/24/20 04/24/20 09:55 09:55 09:55 WBC 7.1 RBC 4.91 Hgb 13.4 Hct 41.8 MCV 85.2 MCH 27.3 MCHC 32.1 RDW 14.9 Plt Count 218 MPV 9.7 Sodium 140 Potassium 3.9 Chloride 105 Carbon Dioxide 30 Anion Gap 6 L BUN 15.7 Creatinine 1.1 Est GFR (CKD-EPI)AfAm 100.97 Est GFR (CKD-EPI)NonAf 87.12 Random Glucose 89 Calcium 9.1 Total Bilirubin 1.0 AST 36 ALT 30 Alkaline Phosphatase 76 Total Protein 7.9 Albumin 4.2 Syphilis Serology Non-reactive COVID-19 (EMILY) 04/24/20 10:50 WBC RBC Hgb Hct MCV MCH MCHC RDW Plt Count MPV Sodium Potassium Chloride Carbon Dioxide Anion Gap BUN Creatinine Est GFR (CKD-EPI)AfAm Est GFR (CKD-EPI)NonAf Random Glucose Calcium Total Bilirubin AST ALT Alkaline Phosphatase Total Protein Albumin Syphilis Serology COVID-19 (EMILY) Not detected aaox3 ambulating no acute distress Assessment: 04/26/20 13:08 withdrawals Plan: continue detox increase fluids tylenol prn
[2020-04-26] MEDS: QUEtiapine FUMARATE 100 MG TABLET (FP) PO SCH (21:47)
[2020-04-26] MEDS: THIAMINE HCL 100 MG TABLET (FP) PO SCH (21:47)
[2020-04-26] MEDS: MELATONIN 5 MG TABLETS PO SCH (21:47)
[2020-04-27] MEDS ORDERED: chlordiazePOXIDE HCL 10 MG CAPSULE PO PRN
[2020-04-27] MEDS: chlordiazePOXIDE HCL 10 MG CAPSULE PO SCH ×4 (06:42→22:31)
[2020-04-27] MEDS: NICOTINE 14 MG/24 HOURS TOPICAL PATCH TD SCH (10:33)
[2020-04-27] MEDS: PRENATAL VITAMINS W/ FOLIC ACID TABLET (FP) PO SCH (10:33)
--- NOTE | 2020-04-27 14:16 | PN ---
S CIWA - CIWA Score Nausea/Vomitin-No Nausea/No Vomiting Muscle Tremors: 2 Anxiety: 3 Agitation: 2 Paroxysmal Sweats: 2 Orientation: 0-Oriented Tacttile Disturbances: 0-None Auditory Disturbances: 0-None Visual Disturbances: 0-None Headache: 1-Very Mild CIWA-Ar Total Score: 10 S Progress Note (SOAP) Subjective: Sweating, H/A, Fatigue, Interrupted Sleep. Patient reports That Current withdrawal Detox Symptoms in General Are Subsiding in Severity. Objective: Patient A & O X 3, Observed Ambulating on Detox Unit Unassisted. In No Acute Distress. 04/27/20 14:17 Vital Signs Temperature 97.1 F L 04/27/20 08:52 Pulse Rate 73 04/27/20 08:52 Respiratory Rate 16 04/27/20 08:52 Blood Pressure 123/67 04/27/20 08:52 O2 Sat by Pulse Oximetry (%) 99 04/27/20 08:52 Laboratory Tests 04/24/20 04/24/20 04/24/20 09:55 09:55 09:55 WBC 7.1 RBC 4.91 Hgb 13.4 Hct 41.8 MCV 85.2 MCH 27.3 MCHC 32.1 RDW 14.9 Plt Count 218 MPV 9.7 Sodium 140 Potassium 3.9 Chloride 105 Carbon Dioxide 30 Anion Gap 6 L BUN 15.7 Creatinine 1.1 Est GFR (CKD-EPI)AfAm 100.97 Est GFR (CKD-EPI)NonAf 87.12 Random Glucose 89 Calcium 9.1 Total Bilirubin 1.0 AST 36 ALT 30 Alkaline Phosphatase 76 Total Protein 7.9 Albumin 4.2 Syphilis Serology Non-reactive COVID-19 (EMILY) 04/24/20 10:50 WBC RBC Hgb Hct MCV MCH MCHC RDW Plt Count MPV Sodium Potassium Chloride Carbon Dioxide Anion Gap BUN Creatinine Est GFR (CKD-EPI)AfAm Est GFR (CKD-EPI)NonAf Random Glucose Calcium Total Bilirubin AST ALT Alkaline Phosphatase Total Protein Albumin Syphilis Serology COVID-19 (EMILY) Not detected Lab Results noted. Assessment: 04/27/20 14:18 WITHDRAWAL SYMPTOMS. Plan: Continue Detox.
[2020-04-27] MEDS: QUEtiapine FUMARATE 100 MG TABLET (FP) PO SCH (22:31)
[2020-04-27] MEDS: THIAMINE HCL 100 MG TABLET (FP) PO SCH (22:31)
[2020-04-27] MEDS: MELATONIN 5 MG TABLETS PO SCH (22:32)
[2020-04-28] MEDS: chlordiazePOXIDE HCL 10 MG CAPSULE PO SCH ×2 (05:51→17:35)
[2020-04-28] MEDS: NICOTINE 14 MG/24 HOURS TOPICAL PATCH TD SCH (10:32)
[2020-04-28] MEDS: PRENATAL VITAMINS W/ FOLIC ACID TABLET (FP) PO SCH (10:33)
--- NOTE | 2020-04-28 15:32 | PN ---
S CIWA - CIWA Score Nausea/Vomitin-No Nausea/No Vomiting Muscle Tremors: None Anxiety: 2 Agitation: 2 Paroxysmal Sweats: No Perspiration Orientation: 0-Oriented Tacttile Disturbances: 0-None Auditory Disturbances: 0-None Visual Disturbances: 0-None Headache: 0-None Present CIWA-Ar Total Score: 4 BHS Progress Note (SOAP) Subjective: Feels ok Objective: 04/28/20 15:27 Last Vital Signs Temp Pulse Resp BP Pulse Ox 98.6 F 74 18 127/84 98 04/28/20 12:51 04/28/20 12:51 04/28/20 12:51 04/28/20 12:51 04/28/20 12:51 Laboratory Tests 04/24/20 04/24/20 04/24/20 09:55 09:55 09:55 WBC 7.1 RBC 4.91 Hgb 13.4 Hct 41.8 MCV 85.2 MCH 27.3 MCHC 32.1 RDW 14.9 Plt Count 218 MPV 9.7 Sodium 140 Potassium 3.9 Chloride 105 Carbon Dioxide 30 Anion Gap 6 L BUN 15.7 Creatinine 1.1 Est GFR (CKD-EPI)AfAm 100.97 Est GFR (CKD-EPI)NonAf 87.12 Random Glucose 89 Calcium 9.1 Total Bilirubin 1.0 AST 36 ALT 30 Alkaline Phosphatase 76 Total Protein 7.9 Albumin 4.2 Syphilis Serology Non-reactive COVID-19 (EMILY) 04/24/20 10:50 WBC RBC Hgb Hct MCV MCH MCHC RDW Plt Count MPV Sodium Potassium Chloride Carbon Dioxide Anion Gap BUN Creatinine Est GFR (CKD-EPI)AfAm Est GFR (CKD-EPI)NonAf Random Glucose Calcium Total Bilirubin AST ALT Alkaline Phosphatase Total Protein Albumin Syphilis Serology COVID-19 (EMILY) Not detected Labs reviewed Assessment: 04/28/20 15:30 Withdrawal sxs Noted with mildly elevated b/p Plan: Continue detox Encouraged PO water hydration Patient scheduled for discharge tomorrow Elevated b/p: could be due to withdrawal vs anxiety, b/p previously wnl, monitor b/p
[2020-04-28] MEDS: THIAMINE HCL 100 MG TABLET (FP) PO SCH (22:59)
[2020-04-28] MEDS: MELATONIN 5 MG TABLETS PO SCH (23:00)
[2020-04-28] MEDS: QUEtiapine FUMARATE 100 MG TABLET (FP) PO SCH (23:00)
[2020-04-29] MEDS ORDERED: chlordiazePOXIDE HCL 10 MG CAPSULE PO ONE (05:00)
[2020-04-29 06:23] VITALS: BP 111/55; PULSE 89; TEMP 97.7
--- NOTE | 2020-04-29 09:24 | PN ---
[facility] Progress Note Note: Patient is scheduled for discharge today. Script for 30 days supply of Seroquel 100 mg/hs is electronically transmitted to [facility], [facility] [place] [address]
--- NOTE | 2020-04-29 12:58 | PN ---
[facility] CIWA - CIWA Score Nausea/Vomitin-No Nausea/No Vomiting Muscle Tremors: None Anxiety: 1-Mildly Anxious Agitation: 0-Normal Activity Orientation: 0-Oriented Tacttile Disturbances: 0-None Auditory Disturbances: 0-None Visual Disturbances: 0-None Headache: 0-None Present [facility] Progress Note (SOAP) Subjective: alert,no complaint Objective: 04/29/20 12:59 Vital Signs Temperature 97.7 F 04/29/20 05:30 Pulse Rate 89 04/29/20 05:30 Respiratory Rate 17 04/29/20 05:30 Blood Pressure 111/55 L 04/29/20 05:30 O2 Sat by Pulse Oximetry (%) 96 04/29/20 05:30 Assessment: 04/29/20 12:59 detox completed,no withdrawal symptom Plan: stable for discharge today to go to [facility]
--- NOTE | 2020-04-29 13:07 | DS ---
[facility] Detox Discharge Summary Admission Date: 04/24/20 Discharge Date: 04/29/20 - History Present History: Alcohol Dependence, Cannabis Dependence Additional Comments: alert,oriented x 3 ambulation on the unit lung clear on auscultation bilaterally abdomen soft no distension,no pain stable for discharge total time spending on discharge 35 minutes follow up with after care program ,rehab at [facility] left the unit in stable condition Pertinent Past History: nicotine dependence - Physical Exam Results Vital Signs: Vital Signs Temperature 97.7 F 04/29/20 05:30 Pulse Rate 89 04/29/20 05:30 Respiratory Rate 17 04/29/20 05:30 Blood Pressure 111/55 L 04/29/20 05:30 O2 Sat by Pulse Oximetry (%) 96 04/29/20 05:30 Pertinent Admission Physical Exam Findings: withdrawal signs and symptom - Treatment Hospital Course: Detox Protocol Followed, Detoxed Safely, Responded well, Discharged Condition Good, Rehab Referral Accepted Patient has Accepted a Rehab Referral to: [facility] - Medication Discharge Medications: Ambulatory Orders Quetiapine Fumarate [Seroquel -] 100 mg PO HS #30 tablet 04/29/20 - Diagnosis (1) Alcohol dependence with withdrawal Status: Acute Qualifiers: Complication of substance-induced condition: uncomplicated Qualified Code(s): F10.230 - Alcohol dependence with withdrawal, uncomplicated (2) Cannabis use disorder, mild, abuse Status: Acute (3) Insomnia Status: Chronic Qualifiers: Insomnia type: alcohol-induced Qualified Code(s): F10.982 - Alcohol use, unspecified with alcohol-induced sleep disorder (4) Bipolar disorder Status: Ruled-out - AMA Did Patient Leave Against Medical Advice: No
== END 2020-04-29 09:35 | disposition home or self-care (01) | DRG 775 ==
LOC: YASAS 08:26 → Y6N 09:34
PROVIDERS: ADMIT Allergy & Immunology; ATTEND Allergy & Immunology
PROC: HZ2ZZZZ Detoxification Services for Substance Abuse Treatment (ICD-10-PCS; principal; 2020-04-24)
DX: F10.230 Alcohol dependence with withdrawal, uncomplicated (principal); F12.20 Cannabis dependence, uncomplicated; F16.10 Hallucinogen abuse, uncomplicated; F17.210 Nicotine dependence, cigarettes, uncomplicated; F10.982 Alcohol use, unspecified with alcohol-induced sleep disorder; F19.24 Other psychoactive substance dependence with psychoactive substance-induced mood disorder; F39 Unspecified mood [affective] disorder; Z62.810 Personal history of physical and sexual abuse in childhood; Z91.410 Personal history of adult physical and sexual abuse; Z86.19 Personal history of other infectious and parasitic diseases; Z91.013 Allergy to seafood; Z56.0 Unemployment, unspecified; Z59.0 Homelessness
CPT/HCPCS: 36415; 80053; 85027; 86780; U0003